=== PATIENT | female | born 1960 | race Caucasian/White ===

== ENCOUNTER 2023-06-29 14:30 | Emergency (ER) | payer OTHER, MEDICARE ==
[2023-06-29] MEDS ORDERED: Ketorolac Tromethamine 30 MG/ML VIAL ONE (15:57)
[2023-06-29 16:09] LABS: #Basophils 0.1 10x3/uL (0.0-0.2); #Eosinphils 0.3 10x3/uL (0.0-0.5); #Monocytes 0.9 10x3/uL (0.0-1.1); #Neutrophils 6.6 10x3/uL (1.5-8.4); %Basophils 0.8 % (0.0-2.0); %Eosinophils 3.3 % (0.0-6.0); %Monocytes 9.1 % (0.0-10.0); %Neutrophils 65.2 % (40.0-75.0); Hematocrit 37.8 % (34.9-44.5); Hemoglobin 12.8 g/dL (12.0-15.5); Mean Corpuscular HGB CONC 33.9 g/dL (32.0-36.0); Mean Corpuscular Hemoglobin 32.7 pg (27.0-33.0); Mean Corpuscular Volume 96.7 fl (81.6-98.3); Platelet Count 323 10x3/uL (150-450); Red Blood Cell (RBC) Count 3.91 10x6/uL (3.90-5.03); White Blood Cell (WBC) Count 10.1 10x3/uL (3.5-10.5)
[2023-06-29 16:20] LABS: ALT (SGPT) 52 U/L (8-55); AST (SGOT) 49 U/L (5-34); Albumin 4.2 g/dL (3.4-4.8); Alkaline Phosphatase 95 U/L (40-110); Anion Gap 16 mmol/L (10-20); BUN (Urea Nitrogen) 9 mg/dL (9.8-20.1); Bilirubin, Total 0.5 mg/dL (0.2-1.2); Calc. Creatinine Clearance 0 mL/min (70-130); Calcium 8.6 mg/dL (7.8-10.44); Carbon Dioxide 24 mmol/L (23-31); Chloride 95 mmol/L (98-107); Estimated GFR 82; Globulin 2.8 g/dL (2.4-3.5); Glucose 102 mg/dL (80-115); Lipase 29 U/L (8-78); Magnesium 1.8 mg/dL (1.6-2.6); Sodium 131 mmol/L (136-145)
[2023-06-29 16:24] LABS: Troponin I Less than 0.010 ng/mL (< 0.028)
[2023-06-29 17:41] LABS: Bilirubin Neg (Negative); Blood, Urine Negative (Negative); Clarity Clear (Clear); Glucose, Urine (Dipstick) Normal (Negative); Ketone, Urine Negative (Negative); Leukocyte Negative (Negative); Nitrite Negative (Negative); Protein, Urine (Dipstick) Negative (Neg-Trace); Urobilinogen Normal mg/dL (Less than 2)
[2023-06-29 17:49] LABS: Bacteria/HPF 3+ HPF (None Seen); CAUTI Indications for Culture Pelvic or flank pain; RBC/HPF 0-3 HPF (0-3); Squamous Epithelial 0-3 HPF (0-3); WBC/HPF 0-3 HPF (0-3)
[2023-06-29 17:50] LABS: Urine Culture Reflex No No
== END 2023-06-29 19:00 | disposition home or self-care (01) ==
LOC: CSHERS 14:30
DX: M25.562 Pain in left knee (principal); E78.5 Hyperlipidemia, unspecified; I10 Essential (primary) hypertension; J44.9 Chronic obstructive pulmonary disease, unspecified; K21.9 Gastro-esophageal reflux disease without esophagitis; W01.0XXA Fall on same level from slipping, tripping and stumbling without subsequent striking against object, initial encounter
CPT/HCPCS: 70450; 71045; 80053; 81001; 83690; 83735; 83880; 84484; 85025; 93005; 96374; J1885